=== PATIENT | female | born 1970 | race Caucasian/White ===

== ENCOUNTER 2018-09-16 18:39 | Emergency (ER) | payer SELFPAY ==
[~2018-09-16] VITALS: Ht 162.6 cm; Wt 74.1 kg
[~2018-09-16 18:39] MED LIST: IBUP200C11
[2018-09-16 19:14] VITALS: BP 158/77; PULSE 64; RESP 18; Ht 162.6 cm; Wt 74.1 kg
--- NOTE | 2018-09-16 20:26 | ERD ---
ER Documentation Chief Complaint Chief Complaint pain with urination x 5 days with foul smell HPI 47-year-old female, previously healthy, presents the emergency department, complaining of 5 days with progressive worsening of dysuria, associated with increased urinary frequency, strong urine smell and pelvic discomfort. Otherwise, she denies fever, no chills, no abdominal pain, no nausea or vomiting. No reports of vaginal discharge. ROS All systems reviewed and are negative except as per history of present illness. Medications Home Meds Active Scripts Phenazopyridine Hcl* (Pyridium*) 200 Mg Tab, 200 MG PO TID PRN for URINARY PAIN, #6 TAB Prov:VALENTINA PACHECO MD 09/16/18 Sulfamethoxazole/Trimethoprim* (Bactrim Ds* Tablet) 1 Each Tablet, 1 TAB PO BID, #14 TAB Prov:VALENTINA PACHECO MD 09/16/18 Reported Medications Ibuprofen* (Advil*) 200 Mg Capsule 08/21/13 Allergies Allergies: Coded Allergies: No Known Allergy (Unverified , 08/21/13) PMhx/Soc History of Surgery: Yes (CS X3.) Hx Alcohol Use: No Hx Substance Use: No Hx Tobacco Use: No FmHx Family History: diabetes; No coronary disease Physical Exam Vitals Vital Signs Date Temp Pulse Resp B/P (MAP) Pulse Ox O2 O2 Flow FiO2 Time Delivery Rate 09/16/18 97.5 64 18 158/77 99 19:14 (104) Physical Exam Const: No acute distress Head: Atraumatic Eyes: Normal Conjunctiva ENT: Normal External Ears, Nose and Mouth. Neck: Full range of motion. No meningismus. Resp: Clear to auscultation bilaterally Cardio: Regular rate and rhythm, no murmurs Abd: Soft, non tender, non distended. Normal bowel sounds Skin: No petechiae or rashes Back: No midline or flank tenderness Ext: No cyanosis, or edema Neur: Awake and alert Psych: Normal Mood and Affect Results 24 hrs Laboratory Tests Test 09/16/18 21:39 Bedside Urine pH (LAB) 6.0 Bedside Urine Protein (LAB) Negative Bedside Urine Glucose (UA) Negative Bedside Urine Ketones (LAB) Negative Bedside Urine Blood 2+ Bedside Urine Nitrite (LAB) Negative Bedside Urine Leukocyte Esterase (L Trace Procedures/MDM Differential diagnosis include but not limited to: UTI, colitis, gastroenteritis, kidney stones, irritable bowel syndrome, inflammatory bowel s yndrome, malabsorption syndrome, cholelithiasis, food intolerance, medication side effect, pancreatitis, diverticulitis, bowel obstruction. Low suspicion for acute abdomen Physical examination and clinical presentation consistent most likely with urinary tract infection. During the ED course the patient remained stable, no new complaints. Results and clinical impression discussed with patient who agrees with management. The patient is stable to be treated outpatient and will be discharged home, some side effects of prescribed medications (headache, rash, nausea, vomiting, diarrhea, drowsiness, habituation, bleeding, hypertension, interactions with other medications) were reviewed. The patient was instructed to follow up with the primary care provider in the next 48h. If symptoms persist, worsen or new symptoms develop, then patient should return to the ED immediately. Instructions explained and given directly by me to the patient with acknowledgment and demonstrated understanding. Disclaimer: Inadvertent spelling and grammatical errors are likely due to EHR/dictation software use and do not reflect on the overall quality of patient care. Also, please note that the electronic time recorded on this note does not necessarily reflect the actual time of the patient encounter. Departure Diagnosis: Primary Impression: UTI (urinary tract infection) Condition: Stable Additional Instructions: Muchas anneliees por [facility] para santana servicio. Esperamos que en santana visita a la alan de emergencia santana problema medico haya sido solucionado y que se sienta mucho mejor. Para estar seguros que santana mejoria sigue en proceso, le pedimos el favor de hacer razia stepan de seguimiento medico con santana doctor primario en los proximos 2-4 adrian. Lleve con usted estos documentos y las medicinas recetadas. Si cesario sintomas empeoran, NO SE ESPERE, por favor regrese a alan de emergencia INMEDIATAMENTE. En mihir que usted no tenga un mdico de atencin primaria: Llame al mdico o clnica comunitaria de referencia que aparece abajo maria las horas de consultorio para hacer razia stepan para que le vean. CLINICAS: [facility] [phone] [facility] [phone] [facility] [phone] [facility] [phone] [facility] [phone] [address] [facility]. [phone] VALENTINA IVEY MD Sep 16, 2018 20:26
[2018-09-16] MEDS ORDERED: SULF1TAB31 PO (20:43)
[2018-09-16] MEDS ORDERED: PHEN-538 PO (20:43)
== END 2018-09-16 21:26 | disposition home or self-care (01) ==
LOC: FTE 18:39
DX: N39.0 Urinary tract infection, site not specified (principal)
CPT/HCPCS: 81003; 99283

== ENCOUNTER 2018-09-30 13:06 | Emergency (ER) | payer SELFPAY ==
[~2018-09-30] VITALS: Ht 160 cm; Wt 74.2 kg
[~2018-09-30 13:06] MED LIST changes: +IBUP800T48 PO; +MED4DP PO; +PHEN-538 PO; +SULF1TAB31 PO
[2018-09-30 13:12] VITALS: BP 128/75; PULSE 78; RESP 18; Ht 160 cm; Wt 74.2 kg
[2018-09-30] MEDS ORDERED: KETOROLAC 30 MG INJ IM STA (14:04)
[2018-09-30] MEDS ORDERED: METHYLPREDNISOLONE 125 MG INJ IM ONE (14:30)
--- NOTE | 2018-09-30 14:43 | ERD ---
ER Documentation Chief Complaint Chief Complaint lower back pain radiates down left leg x 4 days HPI Patient is a 47 years old female with no known past medical history presenting to the clinic for lower back pain with radiation to left mid gluteal to left foot with paresthesia and numbness X 4 days. Patient denies any history of trauma or injury stated the pain came on suddenly. She denies taking any OTC medication. ROS All systems reviewed and are negative except as per history of present illness. Medications Home Meds Active Scripts Phenazopyridine Hcl* (Pyridium*) 200 Mg Tab, 200 MG PO TID PRN for URINARY PAIN, #6 TAB Prov:VALENTINA PACHECO MD 09/16/18 Sulfamethoxazole/Trimethoprim* (Bactrim Ds* Tablet) 1 Each Tablet, 1 TAB PO BID, #14 TAB Prov:VALENTINA PACHECO MD 09/16/18 Reported Medications Ibuprofen* (Advil*) 200 Mg Capsule 08/21/13 Allergies Allergies: Coded Allergies: No Known Allergy (Unverified , 08/21/13) PMhx/Soc History of Surgery: Yes (CS X3.) Anesthesia Reaction: No Hx Neurological Disorder: No Hx Respiratory Disorders: No Hx Cardiac Disorders: No Hx Psychiatric Problems: No Hx Miscellaneous Medical Probl: No Hx Alcohol Use: No Hx Substance Use: No Hx Tobacco Use: No FmHx Family History: No diabetes, No coronary disease, No other Physical Exam Vitals Vital Signs Date Temp Pulse Resp B/P (MAP) Pulse Ox O2 O2 Flow FiO2 Time Delivery Rate 09/30/18 98.4 78 18 128/75 98 13:12 (92) Physical Exam Const: No acute distress Head: Atraumatic Resp: Clear to auscultation bilaterally Cardio: Regular rate and rhythm, no murmurs Abd: Soft, non tender, non distended. Normal bowel sounds Back: Lower back tenderness with left mid gluteal tenderness. No bone growth abnormality or gross trauma noted. Sensation is intact. Ext: No cyanosis, or edema Psych: Normal Mood and Affect Results 24 hrs Laboratory Tests Test 09/30/18 14:24 POC Beta HCG, Qualitative NEGATIVE Current Medications Medications Dose Sig/Nellie Start Time Status Last (Trade) Ordered Route PRN Stop Time Admin Dose Reason Admin Ketorolac 30 mg ONCE STAT 09/30/18 DC 09/30/18 Tromethamine IM 14:04 09/30/18 14:25 (Toradol) 14:05 125 mg ONCE ONCE 09/30/18 DC 09/30/18 Methylprednis IM 14:30 09/30/18 14:24 olone Sodium 14:31 Succinate (Solu-Medrol) Procedures/MDM Patient was seen and evaluated for lumbar pain with radiation to left lower extremity which is most significant for sciatica without complications. Images required for today's visit patient's vitals are stable with low suspicion of fracture, bone mass. Toradol and Solu-Medrol IM administered in ED with significant improvement of symptoms. Patient is stable ready for discharge. Follow-up with PCP for possible lumbar MRI. Patient will be discharged with ibuprofen 800 and Medrol Dosepak. Departure Diagnosis: Primary Impression: Sciatica Laterality: left Qualified Codes: M54.32 - Sciatica, left side Condition: Stable Patient Instructions: Understanding Sciatica Referrals: [facility] Additional Instructions: Paciente aconseja volver a Departamento de urgencias inmediatamente para sntomas nuevos o que empeoran . Paciente aconseja posteriores con el PCP en 2-3 de la rosa . Paciente verbaliza la comprehensin y est de acuerdo con el tratamiento y el curso de accin. Si el paciente no tiene ninguna de atencin primaria pueden seguir con [facility] [id number] [place] [address] [facility] + [address] [address] CHAYO VILLA PA-C Sep 30, 2018 14:43
== END 2018-09-30 14:51 | disposition home or self-care (01) ==
LOC: FTE 13:06
DX: M54.42 Lumbago with sciatica, left side (principal)
CPT/HCPCS: 81025; 96372; 99284; J1885; J2930